=== PATIENT | male | born 1975 | race Caucasian/White ===

== ENCOUNTER 2016-12-29 10:37 | Emergency (ER) | payer OTHER ==
[2016-12-29 10:43] VITALS: TEMP 98.1; BMI 26.9
[2016-12-29] MEDS ORDERED: KETOROLAC TROMETHAMINE 30 MG/1 ML VIAL IVPUSH ONE (11:50)
[2016-12-29] MEDS ORDERED: KETOROLAC TROMETHAMINE 30 MG/1 ML VIAL ONE (11:58)
--- NOTE | 2016-12-29 12:22 | PDOC ---
History of Present Illness - General Chief Complaint: Chest Pain Stated Complaint: CHEST PAIN, LT ARM NUMBNESS Time Seen by Provider: 12/29/16 11:32 History Source: Patient Exam Limitations: No Limitations - History of Present Illness Initial Comments: 12/29/16 12:17 41-year-old male with no past medical history presents with left arm tingling that began this morning upon awakening and then approximately an hour liters radiates to his left chest wall which he describes as a pressure. Patient denies any palpitations, nausea, dizziness, weakness, diaphoresis, or difficulty breathing. Patient states he feels as if his stress related and denies any family history of cardiac disease. Patient does smoke 2 cigarettes a day but denies any history of elevated cholesterol or hypertension. Patient denies recent illness, recent travel, or recent injury. 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 Presenting Symptoms: Chest Pain Timing/Duration: reports: constant Severity/Quality: reports: mild, pressure Location: reports: substernal Chest Pain Radiation: reports: arms (left) Activities at Onset: reports: none Prior Chest Pain/Cardiac Workup: reports: No prior chest pain Aspirin Received prior to arrival (Core Measure): Yes: no aspirin today Beta Evelyn given by EMS (Core Measure): No Beta Evelyn taken at Home (Core Measure): No Beta Evelyn Contraindications (Core Measure): Yes: Not Prescribed Associated Symptoms: Yes: Chest Pain/pressure Past History - Past Medical History Allergies/Adverse Reactions: Allergies Allergy/AdvReac Type Severity Reaction Status Date / Time No Known Allergies Allergy Verified 12/29/16 10:39 Home Medications: Ambulatory Orders Cyclobenzaprine HCl [Flexeril 10 mg] 10 mg PO BID PRN 12/29/16 Naproxen [Naprosyn -] 500 mg PO BID PRN 12/29/16 Tadalafil [Cialis] 10 mg PO DAILY 12/29/16 Other medical history: none - Psycho/Social/Smoking Cessation Hx Anxiety: No Suicidal Ideation: No Smoking History: Never smoked Have you smoked in the past 12 months: Yes Number of Cigarettes Smoked Daily: 2 Information on smoking cessation initiated: Yes 'Breaking Loose' booklet given: 12/29/16 Hx Alcohol Use: No Drug/Substance Use Hx: No Substance Use Type: None Patient Lives Alone: No Lives with/in: spouse/SO Review of Systems - Review of Systems Able to Perform ROS?: Yes Constitutional: No: Symptoms Reported HEENTM: No: Symptoms Reported Respiratory: No: Symptoms reported Cardiac (ROS): Yes: Chest Pain ABD/GI: No: Symptoms Reported : No: Symptoms Reported Musculoskeletal: No: Symptoms Reported Integumentary: No: Symptoms Reported Neurological: Yes: Tingling (left arm). No: Numbness, Weakness Endocrine: No: Symptoms Reported Hematologic/Lymphatic: No: Symptoms Reported *Physical Exam - Vital Signs Last Vital Signs Temp Pulse Resp BP Pulse Ox 98.1 F 55 L 18 146/75 97 12/29/16 10:40 12/29/16 16:34 12/29/16 16:34 12/29/16 16:34 12/29/16 16:34 - Physical Exam General Appearance: Yes: Nourished, Appropriately Dressed. No: Apparent Distress HEENT: positive: EOMI, NILSON. negative: Pale Conjunctivae Neck: positive: Supple Respiratory/Chest: positive: Chest Tender (left axillary left lateral pectoral) , Lungs Clear, Normal Breath Sounds. negative: Respiratory Distress, Accessory Muscle Use Cardiovascular: positive: Regular Rhythm, Regular Rate. negative: Murmur Gastrointestinal/Abdominal: positive: Soft. negative: Tenderness Musculoskeletal: negative: CVA Tenderness Extremity: positive: Normal Capillary Refill, Normal Inspection, Normal Range of Motion. negative: Tender, Pedal Edema Integumentary: positive: Normal Color, Warm, Moist Neurologic: positive: Motor Strength 5/5 (left hand grasp. left lateral arm raise) Heart Score/ECG Review - History History: Slightly suspicious - Electrocardiogram EKG: Normal - Age Age: </= 45 - Risk Factors Risk Factors Heart Score: Yes Smoking History Based on the list above the patient has:: 1-2 risk factors - Troponin Troponin: </= normal limit - Score Heart Score - Total: 1 #2 General ECG Interpretation: Sinus Rhythm (bradycardia at 46. No acute changes), No acute ischemic changes Compared to previous ECG there are: No significant change (except for bradycardia) - ECG Intrepretation Rhythm: Regular Rhythm (rate 56 sinus bradycardia. no acute findings) Comment:: 12/29/16 12:28 ED Treatment Course - LABORATORY CBC & Chemistry Diagram: 12/29/16 11:52 12/29/16 11:52 - ADDITIONAL ORDERS Additional order review: Laboratory Results 12/29/16 12/29/16 12/29/16 16:00 11:52 11:52 INR 1.02 Sodium 140 Potassium 4.2 Chloride 105 Carbon Dioxide 24 Anion Gap 11 BUN 20 H Creatinine 0.8 Creat Clearance w eGFR > 60 Random Glucose 94 Calcium 9.0 Total Bilirubin 0.5 AST 19 ALT 33 Alkaline Phosphatase 79 Creatine Kinase 96 103 Troponin I < 0.02 < 0.02 Total Protein 7.2 Albumin 4.1 12/29/16 11:52 RBC 5.48 MCV 84.6 MCHC 34.0 RDW 12.8 MPV 9.9 Neutrophils % 66.4 Lymphocytes % 22.7 Monocytes % 9.6 Eosinophils % 0.6 Basophils % 0.7 - RADIOLOGY Radiology Studies Ordered: Category Date Time Status CHEST PA & LAT [RAD] Stat Radiology 12/29/16 11:50 Completed - Medications Given in the ED: ED Medications Discontinued Medications Generic Name Dose Route Start Last Admin Trade Name Freq PRN Reason Stop Dose Admin Ketorolac Tromethamine 30 mg 12/29/16 11:50 12/29/16 12:06 Toradol Injection - IVPUSH 12/29/16 11:51 30 mg ONCE ONE Administration Medical Decision Making - Medical Decision Making 12/29/16 12:08 Left arm tingling upon awakening this morning radiating to his left chest. Patient on exam had reproducible left chest wall pain. Patient does have smoking history and is under a lot of stress. Patient was ordered for labs including chest x-ray, EKG, and Toradol IV. 12/29/16 16:57 Laboratory Tests 12/29/16 12/29/16 12/29/16 11:52 11:52 11:52 WBC 6.5 Hgb 15.8 Hct 46.3 Neutrophils % 66.4 INR 1.02 Sodium 140 Potassium 4.2 Chloride 105 Carbon Dioxide 24 Anion Gap 11 BUN 20 H Creatinine 0.8 Creat Clearance w eGFR > 60 Random Glucose 94 Calcium 9.0 AST 19 ALT 33 Creatine Kinase 103 Troponin I 12/29/16 16:00 WBC Hgb Hct Neutrophils % INR Sodium Potassium Chloride Carbon Dioxide Anion Gap BUN Creatinine Creat Clearance w eGFR Random Glucose Calcium AST ALT Creatine Kinase 96 Troponin I < 0.02 Patient remains asymptomatic since given the Toradol. Patient will be discharged home to follow-up with his PCP and referred health researcher. 12/29/16 16:58 Selected Entries 12/29/16 16:34 Pulse Rate [ 55 L Apical] Respiratory 18 Rate Blood Pressure 146/75 [Right Arm] O2 Sat by Pulse 97 Oximetry (%) Sarah *DC/Admit/Observation/Transfer Diagnosis at time of Disposition: Chest wall pain - Discharge Dispostion Disposition: HOME Condition at time of disposition: Improved - Referrals Referrals: Ammy Watts [Primary Care Provider] - Harry Ferro MD [Staff Physician] - - Patient Instructions Printed Discharge Instructions: DI for Musculoskeletal Pain Additional Instructions: Your workup today here was negative for any acute findings. I do recommend you follow up with referred health researcher and try relaxation techniques to avoid stress
[2016-12-29 12:34] LABS: BASOPHIL 0.7 % (0-2.0); EOSINOPHIL 0.6 % (0-4.5); MCH 28.8 pg (25.7-33.7); MEAN CELL VOLUME 84.6 fl (80-96); MEAN PLT VOLUME 9.9 fl (7.5-11.1); NEUTROPHILS 66.4 % (42.8-82.8); PLATELET COUNT 204 K/MM3 (134-434); RDW 12.8 % (11.9-15.9); WHITE BLOOD COUNT 6.5 K/mm3 (4.0-10.0)
[2016-12-29 12:56] LABS: INR 1.02 (0.82-1.09); PROTHROMBIN TIME (PATIENT) 11.2 SEC (9.98-11.88)
[2016-12-29 12:57] LABS: ALBUMIN 4.1 g/dl (3.4-5.0); ANION GAP 11 (8-16); CO2 24 mmol/L (21-32); CREATININE 0.8 mg/dL (0.7-1.3); GLUCOSE,RANDOM 94 mg/dL (74-106); SGPT/ALT 33 U/L (12-78)
[2016-12-29 13:03] LABS: ALK PHOS 79 U/L (45-117); BILIRUBIN,TOTAL 0.5 mg/dL (0.2-1.0); SGOT/AST 19 U/L (15-37); TOT PROT 7.2 g/dl (6.4-8.2); TROPONIN I < 0.02 ng/ml (0.00-0.05)
--- NOTE | 2016-12-29 13:23 | EKG ---
Test Reason : Blood Pressure : / mmHG Vent. Rate : 056 BPM Atrial Rate : 056 BPM P-R Int : 178 ms QRS Dur : 090 ms QT Int : 396 ms P-R-T Axes : 037 -14 020 degrees QTc Int : 382 ms SINUS BRADYCARDIA OTHERWISE NORMAL ECG NO PREVIOUS ECGS AVAILABLE Confirmed by KETTY GUSTAFSON MD ([id number]) on 12/29/2016 1:22:51 PM Referred By: Confirmed By:KETTY GUSTAFSON MD
[2016-12-29 16:35] VITALS: BP 146/75; PULSE 55
[2016-12-29 16:49] LABS: TROPONIN I < 0.02 ng/ml (0.00-0.05)
--- NOTE | 2016-12-30 11:30 | EKG ---
Test Reason : Blood Pressure : / mmHG Vent. Rate : 046 BPM Atrial Rate : 046 BPM P-R Int : 194 ms QRS Dur : 100 ms QT Int : 422 ms P-R-T Axes : 054 -08 028 degrees QTc Int : 369 ms SINUS BRADYCARDIA POSSIBLE LEFT ATRIAL ENLARGEMENT BORDERLINE ECG WHEN COMPARED WITH ECG OF 29-DEC-2016 10:50, NO SIGNIFICANT CHANGE WAS FOUND Confirmed by HIEN HICKS MD ([id number]) on 12/30/2016 11:30:37 AM Referred By: Confirmed By:HIEN HICKS MD
== END 2016-12-29 17:13 | disposition home or self-care (01) ==
LOC: JER 10:37
PROC: 3E0333Z Introduction of Anti-inflammatory into Peripheral Vein, Percutaneous Approach (ICD-10-PCS; principal; 2016-12-29)
DX: R07.89 Other chest pain (principal); Z72.0 Tobacco use
CPT/HCPCS: 36415; 71020-TC; 80053; 82550; 84484; 85025; 85610; 93005; 93010; 96374; 99283-25

== ENCOUNTER 2017-07-15 12:24 | Emergency (ER) | payer OTHER ==
[2017-07-15 12:53] VITALS: BP 137/97; PULSE 62; TEMP 98.4; BMI 23.3
[2017-07-15] MEDS ORDERED: KETOROLAC TROMETHAMINE 60 MG/2 ML VIAL IM ONE (13:28)
[2017-07-15] MEDS ORDERED: KETOROLAC TROMETHAMINE 60 MG/2 ML VIAL ONE (13:30)
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
== END 2017-07-15 14:45 | disposition home or self-care (01) ==
LOC: JERFT 12:24
PROC: 3E0233Z Introduction of Anti-inflammatory into Muscle, Percutaneous Approach (ICD-10-PCS; principal; 2017-07-15)
DX: M54.5 Low back pain (principal); V53.5XXA Driver of pick-up truck or van injured in collision with car, pick-up truck or van in traffic accident, initial encounter; Y93.89 Activity, other specified; Y92.410 Unspecified street and highway as the place of occurrence of the external cause
CPT/HCPCS: 99281-25

== ENCOUNTER 2019-07-22 22:52 | Emergency (ER) | payer OTHER ==
[2019-07-22 23:04] VITALS: BP 131/93; PULSE 66; TEMP 97.8; BMI 27.4
--- NOTE | 2019-07-23 00:37 | PDOC ---
History of Present Illness - General Chief Complaint: Ear Problem Stated Complaint: EAR PROBLEM Time Seen by Provider: 07/22/19 23:13 History Source: Patient Exam Limitations: No Limitations - History of Present Illness Initial Comments: 07/23/19 00:32 No medical problems. Patient is a 44-year-old male with no past medical history here with complaints of right ear pain since this morning. States last week was swimming in the pool in the [place]. Pain now is 9/10, stinging, throbbing pain that is radiating to neck and face. He has tried to use wax cleaning products with no improvement in symptoms. Denies fever, chills , runny nose, URI symptoms, nausea, vomiting PMHX: neg PSHX: neg PSOCHX: occ etoh, neg cig, neg drugs ALL: NKDA GENERAL/CONSTITUTIONAL: [No fever or chills. No weakness. No weight change.] HEAD, EYES, EARS, NOSE AND THROAT: [No change in vision. No ear pain or discharge. No sore throat.] CARDIOVASCULAR: [No chest pain or shortness of breath.] RESPIRATORY: [No cough, wheezing, or hemoptysis.] GASTROINTESTINAL: [No nausea, vomiting, diarrhea or constipation. No rectal bleeding.] GENITOURINARY: [No dysuria, frequency, or change in urination.] MUSCULOSKELETAL: [No joint or muscle swelling or pain. No neck or back pain.] SKIN AND BREASTS: [No rash or easy bruising.] NEUROLOGIC: [No headache, vertigo, loss of consciousness, or loss of sensation.] PSYCHIATRIC: [No depression or anxiety.] ENDOCRINE: [No increased thirst. No abnormal weight change.] HEMATOLOGIC/LYMPHATIC: [No anemia, easy bleeding, or history of blood clots.] ALLERGIC/IMMUNOLOGIC: [No hives or skin allergy. No latex allergy.] GENERAL: [The patient is awake, alert, and fully oriented, in no acute distress. ] HEAD: [Normal with no signs of trauma.] EYES: [Pupils equal, round and reactive to light, extraocular movements intact, sclera anicteric, conjunctiva clear.] ENT: [Right ear mild erythema, exquisitely tender to earlobe and helix, (+) cerumen impaction in the right ear, TM not identified, (+) tragal tenderness, (- ) discharge nares patent, oropharynx clear without exudates. Moist mucous membranes.] NECK: [Normal range of motion, supple without lymphadenopathy, JVD, or masses.] LUNGS: [Breath sounds equal, clear to auscultation bilaterally. No wheezes, and no crackles.] HEART: [Regular rate and rhythm, normal S1 and S2 without murmur, rub.] ABDOMEN: [Soft, nontender, normoactive bowel sounds. No guarding, no rebound. No masses.] EXTREMITIES: [Normal range of motion, no edema. No clubbing or cyanosis. No cords, erythema, or tenderness.] NEUROLOGICAL: [Cranial nerves II through XII grossly intact. Normal speech, normal gait.] PSYCH: [Normal mood, normal affect.] SKIN: [mild eythema to the right ear lobe, Warmth, Dry, normal turgor, no rashes or lesions noted.] 07/23/19 02:26 Past History - Past Medical History Allergies/Adverse Reactions: Allergies Allergy/AdvReac Type Severity Reaction Status Date / Time No Known Allergies Allergy Verified 07/22/19 23:05 Home Medications: Ambulatory Orders Tadalafil [Cialis] 10 mg PO DAILY 12/29/16 Cyclobenzaprine HCl [Flexeril 10 mg] 10 mg PO BID PRN #20 tablet MDD 3 07/15/17 Naproxen [Naprosyn -] 500 mg PO BID #14 tablet 07/15/17 Cephalexin [Keflex] 500 mg PO QID #28 capsule 07/23/19 Ciprofloxacin HCl/Dexameth [Ciprodex Otic Suspension] 5 drop AD BID 7 Days #1 bottle 07/23/19 Ibuprofen [Motrin -] 600 mg PO QID #28 tablet 07/23/19 COPD: No - Immunization History Immunization Up to Date: Yes - Psycho Social/Smoking Cessation Hx Smoking History: Current some day smoker Have you smoked in the past 12 months: Yes Number of Cigarettes Smoked Daily: 0 Information on smoking cessation initiated: Yes 'Breaking Loose' booklet given: 12/29/16 Hx Alcohol Use: No Drug/Substance Use Hx: No Substance Use Type: None *Physical Exam - Vital Signs Last Vital Signs Temp Pulse Resp BP Pulse Ox 97.8 F 66 20 131/93 100 07/22/19 22:54 07/22/19 22:54 07/22/19 22:54 07/22/19 22:54 07/22/19 23:05 Medical Decision Making - Medical Decision Making 07/23/19 00:32 No medical problems. Patient is a 44-year-old male with no past medical history here with complaints of right ear pain since this morning. States last week was swimming in the pool in the [facility]. Pain now is 9/10, stinging, throbbing pain that is radiating to neck and face. He has tried to use wax cleaning products with no improvement in symptoms. Symptoms consistent with otitis externa concern for earlobe involvement so will put on antibiotic drops for the ear including p.o. antibiotics. Patient given Keflex 500 mg p.o. Toradol 30 mg IM. Prescription for Ciprodex and Keflex sent to the pharmacy Procedure note: Right ear cleaned with curette and flushed with hydrogen peroxide solution with successful removal of earwax. Right external canal and TM moderate erythema noted. I discussed the physical exam findings, ancillary test results and final diagnoses with the patient. I answered all of the patient's questions. The patient was satisfied with the care received and felt comfortable with the discharge plan and treatment plan. The Patient agrees to follow up with the primary care physician within 24-72 hours. Discharge - Discharge Information Problems reviewed: Yes Clinical Impression/Diagnosis: Otitis externa Qualifiers: Otitis externa type: diffuse Chronicity: acute Laterality: right Qualified Code (s): H60.311 - Diffuse otitis externa, right ear Cerumen impaction Qualifiers: Laterality: right Qualified Code(s): H61.21 - Impacted cerumen, right ear Condition: Stable Disposition: HOME - Additional Discharge Information Prescriptions: Cephalexin [Keflex] 500 mg PO QID #28 capsule Ciprofloxacin HCl/Dexameth [Ciprodex Otic Suspension] 5 drop AD BID 7 Days #1 bottle Ibuprofen [Motrin -] 600 mg PO QID #28 tablet - Follow up/Referral - Patient Discharge Instructions Patient Printed Discharge Instructions: DI for Otitis Externa Additional Instructions: Your Discharge Instructions: You must call primary care physician within 24 hours to arrange follow-up. Return to the Emergency Department with any new, persistent or worsening symptoms, for fever, chills, SOB, dizziness or any other concerning changes that may occur. - Post Discharge Activity Work/Back to School Note: Back to Work
[2019-07-23] MEDS ORDERED: KETOROLAC TROMETHAMINE 30 MG/1 ML VIAL IM ONE (00:44)
[2019-07-23] MEDS ORDERED: CEPHALEXIN MONOHYDRATE 500 MG CAPSULE (UD) PO ONE (00:44)
[2019-07-23] MEDS ORDERED: CEPHALEXIN MONOHYDRATE 500 MG CAPSULE (UD) ONE (00:47)
== END 2019-07-23 01:15 | disposition home or self-care (01) ==
LOC: JER 22:52
PROC: 3E0233Z Introduction of Anti-inflammatory into Muscle, Percutaneous Approach (ICD-10-PCS; principal; 2019-07-22)
PROC: 09C47ZZ Extirpation of Matter from Left External Auditory Canal, Via Natural or Artificial Opening (ICD-10-PCS; 2019-07-22)
DX: H60.311 Diffuse otitis externa, right ear (principal); H61.21 Impacted cerumen, right ear
CPT/HCPCS: 69210; 96372; 99282-25

== ENCOUNTER 2021-08-20 13:04 | Emergency (ER) | payer OTHER ==
[2021-08-20 13:14] VITALS: BP 137/98; PULSE 63; TEMP 98; BMI 27.4
== END 2021-08-20 14:52 | disposition home or self-care (01) ==
LOC: JER 13:04
DX: R05.1 Acute cough (principal); J39.2 Other diseases of pharynx; J06.9 Acute upper respiratory infection, unspecified
CPT/HCPCS: 71046-TC-FY; 93005; 93010; 99284-25

== ENCOUNTER 2022-11-16 04:25 | Day surgery (SDC) | payer OTHER ==
[2022-11-13 13:54] VITALS: BMI 26.6
[2022-11-16] MEDS ORDERED: KETAMINE HCL 500 MG/10 ML VIAL ONE (07:13)
[2022-11-16 08:34] VITALS: TEMP 97.2
[2022-11-16 08:41] VITALS: RESP 16
[2022-11-16 09:58] VITALS: BP 125/91; PULSE 50
== END 2022-11-16 09:50 | disposition home or self-care (01) ==
LOC: JASU-ENDO 04:25
PROVIDERS: ATTEND Internal Medicine Gastroenterology
PROC: 0DBL8ZX Excision of Transverse Colon, Via Natural or Artificial Opening Endoscopic, Diagnostic (ICD-10-PCS; 2022-11-16)
PROC: 0DBN8ZX Excision of Sigmoid Colon, Via Natural or Artificial Opening Endoscopic, Diagnostic (ICD-10-PCS; 2022-11-16)
PROC: 0DBP8ZX Excision of Rectum, Via Natural or Artificial Opening Endoscopic, Diagnostic (ICD-10-PCS; principal; 2022-11-16 08:00)
DX: Z12.11 Encounter for screening for malignant neoplasm of colon (principal); D12.3 Benign neoplasm of transverse colon; D12.5 Benign neoplasm of sigmoid colon; K62.1 Rectal polyp
CPT/HCPCS: 88305-TC

== ENCOUNTER 2023-05-03 13:50 | Emergency (ER) | payer OTHER ==
[2023-05-03 14:20] VITALS: BP 149/98; PULSE 60; RESP 18; TEMP 98.6; BMI 24.1
[2023-05-03] MEDS ORDERED: DIPHTH,PERTUSS(ACELL),TET 0.5 ML DISP.SYRIN IM ONE ×2 (15:41→15:49)
[2023-05-03] MEDS ORDERED: TETANUS IMMUNE GLOBULIN 250 UNITS DISP.SYRIN IM ONE (15:42)
[2023-05-03] MEDS ORDERED: AMOX TR/POT CLAV 875MG/125MG TABLETS (FP) PO ONE (15:44)
[2023-05-03] MEDS ORDERED: KETOROLAC TROMETHAMINE 30 MG/1 ML VIAL IM ONE (15:45)
[2023-05-03] MEDS ORDERED: RABIES IMMUNE GLOBULIN 300 UNITS/1 ML VIAL IM ONE ×2 (15:49→15:55)
[2023-05-03] MEDS ORDERED: KETOROLAC TROMETHAMINE 30 MG/1 ML VIAL ONE (15:49)
[2023-05-03] MEDS ORDERED: AMOX TR/POT CLAV 875MG/125MG TABLETS (FP) ONE (15:49)
[2023-05-03] MEDS ORDERED: RABIES VACCINE (PCEC)/PF 2.5 UNIT/VIAL IM ONE (15:58)
[2023-05-03] MEDS ORDERED: RABIES IMMUNE GLOBULIN 300 UNITS/1 ML VIAL ONE (15:58)
== END 2023-05-03 16:54 | disposition home or self-care (01) ==
LOC: JERFT 13:50
PROC: 3E0233Z Introduction of Anti-inflammatory into Muscle, Percutaneous Approach (ICD-10-PCS; principal; 2023-05-03)
PROC: 3E0234Z Introduction of Serum, Toxoid and Vaccine into Muscle, Percutaneous Approach (ICD-10-PCS; 2023-05-03)
DX: S61.451A Open bite of right hand, initial encounter (principal); S61.551A Open bite of right wrist, initial encounter; L03.113 Cellulitis of right upper limb; W55.01XA Bitten by cat, initial encounter; Z20.3 Contact with and (suspected) exposure to rabies
CPT/HCPCS: 73130-TC-RT-FY; 90375; 90471; 90715; 96372; 99284-25

== ENCOUNTER 2023-05-07 06:50 | Emergency (ER) | payer OTHER ==
[2023-05-07 06:59] VITALS: BP 137/98; PULSE 54; RESP 18; TEMP 98.4; BMI 24.1
[2023-05-07] MEDS ORDERED: RABIES VACCINE (PCEC)/PF 2.5 UNIT/VIAL IM ONE ×2 (07:26→07:41)
== END 2023-05-07 08:01 | disposition home or self-care (01) ==
LOC: JER 06:50
PROC: 3E0234Z Introduction of Serum, Toxoid and Vaccine into Muscle, Percutaneous Approach (ICD-10-PCS; principal; 2023-05-07)
DX: Z23 Encounter for immunization (principal)
CPT/HCPCS: 90675; 99281-25

== ENCOUNTER 2023-05-11 07:53 | Emergency (ER) | payer OTHER ==
[2023-05-11 08:00] VITALS: BP 133/93; PULSE 57; RESP 14; TEMP 98.3; BMI 24.1
[2023-05-11] MEDS ORDERED: RABIES VACCINE (PCEC)/PF 2.5 UNIT/VIAL IM ONE ×2 (08:15→08:42)
== END 2023-05-11 08:52 | disposition home or self-care (01) ==
LOC: JER 07:53
PROC: 3E0234Z Introduction of Serum, Toxoid and Vaccine into Muscle, Percutaneous Approach (ICD-10-PCS; principal; 2023-05-11)
DX: Z20.3 Contact with and (suspected) exposure to rabies (principal); S61.451D Open bite of right hand, subsequent encounter; S51.851D Open bite of right forearm, subsequent encounter; Z48.00 Encounter for change or removal of nonsurgical wound dressing; W55.01XA Bitten by cat, initial encounter
CPT/HCPCS: 90471; 90675; 99281-25

== ENCOUNTER 2023-05-17 08:26 | Emergency (ER) | payer OTHER ==
[2023-05-17 08:44] VITALS: BP 145/88; PULSE 59; TEMP 97.8; BMI 24.4
[2023-05-17] MEDS ORDERED: RABIES VACCINE (PCEC)/PF 2.5 UNIT/VIAL IM ONE ×2 (09:09→09:18)
== END 2023-05-17 09:50 | disposition home or self-care (01) ==
LOC: JER 08:26
PROC: 3E0234Z Introduction of Serum, Toxoid and Vaccine into Muscle, Percutaneous Approach (ICD-10-PCS; principal; 2023-05-17)
DX: Z29.14 Encounter for prophylactic rabies immune globulin (principal)
CPT/HCPCS: 90675; 99281-25